=== PATIENT | male | born 2000 | race Caucasian/White ===

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

== ENCOUNTER 2022-01-29 22:00 | Emergency (ER) | payer BC ==
[2022-01-29 23:12] LABS: HEMOGLOBIN 15.9 gm/dl (14.0-17.5); RED BLOOD COUNT 5.57 M/UL (4.20-5.50); WHITE BLOOD COUNT 9.8 K/UL (4.5-11.0)
[2022-01-30 00:12] LABS: BUN/CREATININE RATIO 14 (0-10)
[2022-01-30] MEDS ORDERED: IBUPROFEN600 MG PO (04:17)
[2022-01-30] MEDS ORDERED: BENTYL 20MG TAB20 MG PO (04:17)
[2022-01-30] MEDS ORDERED: ZOFRAN ODT 4 MG4 MG PO (04:17)
== END 2022-01-30 04:30 | disposition home or self-care (01) ==
LOC: ER1 22:00
PROVIDERS: Family Medicine
DX: R10.84 Generalized abdominal pain (principal); R10.817 Generalized abdominal tenderness
CPT/HCPCS: 80053; 81001; 83690; 85025; 99284; Q9967